=== PATIENT | female | born 1970 | race American Indian/Alaskan Native ===

== ENCOUNTER 2021-01-15 08:01 | Day surgery (SDC) | payer OTHER ==
[2021-01-10 10:53] LABS: Basophils % (Auto) 1.1 % (0.0-1.8); Eosinophils # (Auto) 0.1 K/mm3 (0.0-0.4); Eosinophils % (Auto) 2.1 % (0.0-4.3); Hematocrit 35.7 % (30.3-42.9); Hemoglobin 11.4 gm/dl (10.1-14.3); Lymphocytes # (Auto) 1.1 K/mm3 (1.2-5.4); Lymphocytes % (Auto) 25.1 % (13.4-35.0); Mean Corpuscular HGB Conc 32 % (30-34); Mean Corpuscular Volume 79 fl (79-97); Monocytes # (Auto) 0.4 K/mm3 (0.0-0.8); Monocytes % (Auto) 8.2 % (0.0-7.3); Platelet Count 309 K/mm3 (140-440); Red Blood Count 4.52 M/mm3 (3.65-5.03); Red Cell Distribution Width 15.6 % (13.2-15.2)
--- NOTE | 2021-01-10 13:51 | Anesthesia Consultation ---
Anesthesia Consult and Med Hx Date of service: 01/15/21 - Airway Anesthetic Teeth Evaluation: Chipped ROM Head & Neck: Adequate Mental/Hyoid Distance: Adequate Mallampati Class: Class II Intubation Access Assessment: Probably Good - Pre-Operative Health Status ASA Pre-Surgery Classification: ASA2 Proposed Anesthetic Plan: General Nerve Block: TAP - Pulmonary Hx Smoking: No Hx Sleep Apnea: No - Cardiovascular System Hx Hypertension: No Hx Heart Attack/AMI: No Hx Heart Murmur: Yes - Central Nervous System Hx Seizures: No Hx Back Pain: Yes (Scoliosis) Hx Psychiatric Problems: No - Endocrine Hx Liver Disease: No - Hematic Hx Anemia: Yes Hx Sickle Cell Disease: Yes (TRAIT) - Other Systems Hx Alcohol Use: No Hx Substance Use: No Hx Cancer: No Hx Obesity: Yes
--- NOTE | 2021-01-14 13:44 | History and Physical Report ---
History of Present Illness Date of examination: 01/10/21 Chief complaint: Menorrhagia, uterine fibroids, pelvic pain and dysmenorrhea History of present illness: Menstrual History: LMP (date): 01/06/2021 LMP - Character: normal Menarche: 13 Menses interval: 28 days Menstrual flow: 4 days Current Method of Contraception: None Past History : 0 [employer] History Operations: Cataract surgery(R) Colon polypectomy benign (11/29) rescreen 3 years per patient Abnormal PAP: negative Infection History HIV Risk Eval: no Hx of STD: None Active Medications (reviewed today): ascorbic acid (vitamin C) 500 mg capsule (ascorbic acid (vitamin c)) ibuprofen 800 mg tablet (ibuprofen) ergocalciferol (vitamin D2) 1,250 mcg (50,000 unit) capsule (ergocalciferol (vitamin d2)) Current Allergies (reviewed today): No known allergies Past Medical History: Reviewed and updated today: hemorrhoids diverticulosis herniated disc L4-5 heart murmur w/ echocardiogram negative Lichen simplex chronicus. Vitamin D deficiency sickle cell trait Anemia h/o (R) eye cataract h/o +COVID-19 (04/2019) HELEN negative Colon polyp (11/29/20) Dr. Laguerre Past Surgical History: Reviewed and updated today: Cataract surgery(R) Colon polypectomy benign (11/29) rescreen 3 years per patient Family History Summary: Reviewed history Last on 10/10/2020 and no changes required:01/14/2021 Uncle - Has Family History of Prostate Cancer - paternal - Entered On: 12/18/2020 Mother - Has Family History of Diabetes - Entered On: 09/22/2018 Other Family Member - Has No Family History of Uterine Cancer - Entered On: 09/17/2016 Other Family Member - Has No Family History of Small Bowel Cancer - Entered On: 09/17/2016 Other Family Member - Has No Family History of Stomach Cancer - Entered On: 09/17/2016 Other Family Member - Has No Family History of Pancreatic Cancer - Entered On: 09/17/2016 Other Family Member - Has No Family History of Kidney/Urinary Tract Cancer - Entered On: 09/17/2016 Other Family Member - Has No Family History of DVT/PE on OCP - Entered On: 09/17/2016 Other Family Member - Has No Family History of Colon Cancer - Entered On: 09/17/2016 Other Family Member - Has No Family History of Brain Cancer - Entered On: 09/17/2016 Other Family Member - Has No Family History of Biliary Tract Cancer - Entered On: 09/17/2016 Father - Has Family History of Diabetes - Entered On: 03/08/2015 General Comments - FH: Family History Breast Cancer:PGM menopause Family History of Ovarian Cancer:MGM menopause No Family History of Colon Cancer No Family History of DVT/PE on OCP Social History: Reviewed history from 07/23/2016 and no changes required: Patient is single Smoking History: Patient has never smoked. Risk Factors: Smoked Tobacco Use: Never smoker Smokeless Tobacco Use: Never Passive Smoke Exposure: no HIV High Risk Behavior: no Exercise: no Seatbelt Use: 100 % PAP Smear History: Date of Last PAP Smear: 10/10/2020 Results: Normal Alcohol Use: no Drug Use: no Previous Tobacco Use: Signed On - 10/10/2020 Smoked Tobacco Use: Never smoker Smokeless Tobacco Use: Never Passive Smoke Exposure: no HIV High Risk Behavior: no Exercise: no Seatbelt Use: 100 % Alcohol Use: no Drug Use: no Physical Exam Appearance: well developed, well nourished, no acute distress Other Exams Lungs: no rales, rhonchi, or wheezes Heart: S1, S2, no murmur, rub, or gallop Genitourinary Exam Uterus: deferred for EUA Impression & Recommendations: Problem # 1: Menorrhagia (ICD-626.2) (LST12-B00.0) Diagnosis explained to patient . Discussed with patient various medical, surgical and radiological therapies common for treatment including, but not limited to, myomectomy, hysterectomy and uterine artery embolization. Discussed risks and benefits of laparotomy, laparoscopy, vaginal and robotic assisted approaches for hysterectomies. Patient desires definitive treatment in the form of robot assisted laparoscopic total hysterectomy. The risks and al ternatives for this surgery were reviewed with the patient. She was informed of the risks of the surgery including, but not limited to, pain, infection, bleeding possibly heavy enough to require a blood transfusion with associated risks of infections (hepatitis and HIV) and transfusion reactions, possible damage to bowel, bladder or ureter(s) and surrounding organs. She was also informed of slight increased risk for vaginal cuff breakdown with the robotic approach. Patient understands that this surgery will make her sterile. Indications to abort a robotic/laparoscopic procedure and perform an open procedure were explained. Patient understands if her ovaries are removed she will become menopausal. Patient advised the small risks of spreading of malignancy if morcellation is required during the surgery patient understands and approves performing if necessary. Questions answered. Consent reviewed and signed The patient was instructed/informed the following: The normal length of hospital stay for this procedure. Nothing to eat or drink after midnight the evening prior to surgery.. Pre-op instruction sheets given. Wound care instructions given. Problem # 2: LEIOMYOMA, UTERUS (ICD-218.0) (MBA97-T96.0) Problem # 3: Pelvic and perineal pain (ICD-789.00) (TJG33-Z83.2) It was extensively explained to her that her pain may persist, recur or change in nature due to the difficulty with determining the exact etiology(ies) of chronic pelvic pain or development of adhesions. She declined other treatment options at this time. She desires ovarian conservation. She was informed she may require surgery later to have her ovaries removed for a benign or malignant condition. Problem # 4: Dysmenorrhea (ICD-625.3) (LTR14-Y59.6) Problem # 5: FAMILY HISTORY OF OVARIAN CANCER (ICD-V16.41) (YSU19-N92.41) Again strongly recommend haing both ovaries removed. Questions encouraged and answered. She's still undecided, states she will wait for her genetic test results before making a decision. She was informed she will not be able to sign another consent to hae her ovaires remved after she's been given narcotics. Patient voiced understanding and agreed with plan of care. Counseling and coordination of care was >50% of the face to face time. The total face to face time for this visit was ~40 minutes. Medications and Allergies Allergies Allergy/AdvReac Type Severity Reaction Status Date / Time No Known Allergies Allergy Unverified 01/07/21 12:24 Home Medications Medication Instructions Recorded Confirmed Last Taken Type Ascorbic Acid [Vitamin C] 500 mg PO QDAY 01/07/21 01/07/21 Unknown History Vitamin D3 2,000 units PO DAILY 01/07/21 01/07/21 Unknown History Active Meds: Active Medications Acetaminophen (Acetaminophen 325 Mg/10.15 Ml Oral Liqd Unit Dose) 975 mg PO PREOP NR Stop: 01/15/21 23:59 Fentanyl (Fentanyl 100 Mcg/2 Ml Inj) 100 mcg IV ONCE ONE Stop: 01/15/21 06:01 Gabapentin (Gabapentin 500 Mg/10 Ml Oral Liqd) 500 mg PO PREOP NR Stop: 01/15/21 23:59 Methocarbamol 1,000 mg/ Sodium (Chloride) 260 mls @ 250 mls/hr IV ONCE ONE Stop: 01/15/21 07:02 Lactated Ringer's (Lactated Ringers) 1,000 mls @ 125 mls/hr IV DIRECT CATINA Cefazolin Sodium (Ancef/Sterile Water 2 Gm/20 Ml) 2 gm in 20 mls @ 80 mls/hr IV PREOP NR; Protocol Stop: 01/15/21 20:00 Midazolam HCl (Midazolam 2 Mg/2 Ml Inj) 2 mg IV PREOP NR Stop: 01/15/21 23:59 Exam Vital Signs Temp Pulse Resp BP Pulse Ox 98.7 F 95 H 20 150/89 100 01/10/21 10:00 01/10/21 10:00 01/10/21 10:00 01/10/21 10:00 01/10/21 10:00 Results - Labs 01/10/21 10:08 Assessment and Plan - Patient Problems (1) Menorrhagia Status: Acute (2) Dysmenorrhea Status: Acute (3) Pelvic pain Status: Chronic (4) Fibroids Status: Acute
[~2021-01-15 08:01] MED LIST: ACETAMINOPHEN 325 MG/10.15 ML ORAL LIQD UNIT DOSE PO NR; GABAPENTIN 500 MG/10 ML ORAL LIQD PO NR; LACTATED RINGERS 1,000 ML IV SCH; MIDAZOLAM 2 MG/2 ML INJ IV NR; ceFAZolin/Water 2 GM/20 ML 2 GM/20 ML SYRINGE IV NR; fentaNYL 100 MCG/2 ML INJ IV ONE; methOCARBAMOL 1,000 MG in SODIUM CHLORIDE 0.9% 250ML 250 ML IV ONE
[2021-01-15] MEDS ORDERED: dexAMETHasone 4 MG/ML VIAL ONE (10:25)
[2021-01-15] MEDS ORDERED: BUPIVACAINE/PF (0.25%) 2.5 MG/ML 30 ML VIAL INFILTRATI ONE (10:25)
--- NOTE | 2021-01-15 10:27 | Anesthesia Day of Surgery ---
Anesthesia Day of Surgery - Day of Surgery Patient Examined: Yes Patient H&P Reviewed: Yes Patient is NPO: Yes
[2021-01-15] MEDS ORDERED: oxyCODONE /ACETAMINOPHEN 5-325MG TAB PO PRN (10:30)
[2021-01-15] MEDS ORDERED: HYDROmorphone 1 MG/1 ML INJ IV PRN (10:30)
[2021-01-15] MEDS ORDERED: ONDANSETRON 4 MG/2 ML INJ IV PRN (10:30)
[2021-01-15 10:37] LABS: Blood Urea Nitrogen 8 mg/dL (7-17); Calcium 9.1 mg/dL (8.4-10.2); Hemolysis Index 5
[2021-01-15 10:54] LABS: BUN/Creatinine Ratio 16
[2021-01-15] MEDS ORDERED: HYDROmorphone 1 MG/1 ML INJ ONE (12:03)
[2021-01-15] MEDS ORDERED: propofoL 200 MG/20 ML VIAL IV ONE (12:03)
[2021-01-15] MEDS ORDERED: ROCURONIUM 50 MG/5 ML INJ IV ONE (12:05)
[2021-01-15] MEDS ORDERED: LIDOCAINE MPF (2%) 20 MG/1 ML VIAL 5 ML ONE (12:06)
[2021-01-15] MEDS ORDERED: NEOMY 40 MG/POLYMYXIN B 200,000 UNITS/ML (GU) AMPULE IR ONE (12:08)
--- NOTE | 2021-01-15 12:50 | Event Note ---
Date: 01/15/21 Patient was noted to have tachycardia and chest pressures in Pre-op, will cancel surgery today and reschedule after a thorough cardiac evaluation has be completed. Patient aware of concerns and agrees with cancellation today and cardiac evaluation harman. Referred to Dr. Theresa Sung
[2021-01-15 14:39] VITALS: BP 127/76
--- NOTE | 2021-01-17 10:15 | Electrocardiograph Report ---
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
== END 2021-01-15 08:02 | disposition home or self-care (01) ==
LOC: OR 08:01
PROVIDERS: ATTEND Obstetrics & Gynecology
DX: N92.0 Excessive and frequent menstruation with regular cycle (principal); Z53.8 Procedure and treatment not carried out for other reasons; D25.0 Submucous leiomyoma of uterus; N94.6 Dysmenorrhea, unspecified; E66.9 Obesity, unspecified; Z80.41 Family history of malignant neoplasm of ovary; Z79.899 Other long term (current) drug therapy; Z98.890 Other specified postprocedural states; Z20.822 Contact with and (suspected) exposure to COVID-19
CPT/HCPCS: 36415; 64450; 80048; 81025; 83735; 85025; 86850; 86900; 86901; 93005; J0690; J1100; J1170; J2250; J3010; J3490; J7120; U0003; J2704